=== PATIENT | male | born 1965 ===

== ENCOUNTER 2024-01-02 01:20 | Emergency (ER) | payer SELFPAY ==
[~2024-01-02] VITALS: Ht 185.4 cm; Wt 102.0 kg
[2024-01-02 01:26] VITALS: BP 128/81; PULSE 72; RESP 16; TEMP 98.3; O2SAT 97
[2024-01-02] MEDS ORDERED: BACITRACIN ZINC OINT UDPKT TOP ONE (02:00)
[2024-01-02] MEDS ORDERED: TETANUS, DIPHTHERIA, PERTUSSIS VAC/PF 0.5ML (>10YR OLD) IM ONE (02:00)
[2024-01-02] MEDS ORDERED: LIDOCAINE HCL/PF 1% 10 MG/ML 5ML VIAL INFIL ONE (02:00)
[2024-01-02] MEDS ORDERED: BO1 TP (03:15)
== END 2024-01-02 03:49 | disposition home or self-care (01) ==
LOC: ER 01:20
DX: S01.01XA Laceration without foreign body of scalp, initial encounter (principal); I10 Essential (primary) hypertension; E11.9 Type 2 diabetes mellitus without complications; Z88.8 Allergy status to other drugs, medicaments and biological substances; W18.39XA Other fall on same level, initial encounter; Y93.89 Activity, other specified; Y92.89 Other specified places as the place of occurrence of the external cause; Y99.8 Other external cause status
CPT/HCPCS: 12002; 99284